=== PATIENT | male | born 1990 | race Caucasian/White ===

== ENCOUNTER 2016-11-05 15:22 | Emergency (ER) | payer BC ==
[2016-11-05 15:42] LABS: Urine Bilirubin Negative (NEGATIVE); Urine Blood 25 /ul (NEGATIVE); Urine Ketone Negative (NEGATIVE); Urine Nitrite Negative (NEGATIVE); Urine Protein Negative (NEGATIVE); Urine Urobilinogen Normal (NORMAL); Urine pH 7.5 pH (5.0-7.0)
--- NOTE | 2016-11-05 15:44 | ERNOTE ---
Back Pain ER HPI Time Seen by Provider: 11/05/16 15:32 Source: patient Exam Limitations: no limitations Immunizations: IMMUNIZATION HX History of Influenza Vaccine Yes Allergies/Adverse Reactions: Allergies No Known Allergies Allergy (Unverified 11/05/16 15:29) Home Medications: HOME MEDICATIONS Cyclobenzaprine HCl [Flexeril] 10 mg PO TID PRN #30 tab 11/05/16 [Last Taken Unknown] Ibuprofen [Motrin] 800 mg PO TID PRN #60 tab 11/05/16 [Last Taken Unknown] Sulfamethoxazole/Trimethoprim [Bactrim Ds] 1 tab PO BID #14 tab 11/05/16 [Last Taken Unknown] Narrative: Patient has had episodes of left flank pain for about six days. He had one episode six days ago lasting a few hours, had another one three days ago and was seen in the [facility] ER had labs and a CT to rule out renal colic, pain resolved. He had two more episodes yesterday and still has some discomfort now. He denies any injury, has had pain in his right hip for a few weeks that he saw a chiropractor for three days ago. Date (Duration): 10/30/16 Timing: Reports: intermittent Quality/Severity: Reports: moderate, sharpness Location of pain: Reports: lower back, no radiation Activities at Onset: Reports: none Recent Injury?: Reports: no Modifying Factors - (Worsens): Reports: movement to right, movement to left, cough/deep breaths Associated Symptoms: Reports: problems urinating. Denies: fever/chills, constipation/incontinence, nausea/vomiting Prior Treament: Denies: recently seen, similar symptoms before Review of Systems - Review of Systems Constitutional: Absent: recent illness, fever ENT: Present: nose congestion, nasal drainage Respiratory: Absent: shortness of breath, cough, other Gastrointestinal/Abdominal: Absent: nausea, vomiting, diarrhea, abdominal pain Genitourinary: Present: frequency, decreased urinary output, other - feels like incomplete emptying Musculoskeletal: Present: See HPI, back pain Neurological: Absent: headache, weakness, numbness - Patient's Past Medical History Patient History - Medical: No pertinent hx Patient History - Cardiac/Respiratory: No pertinent hx Patient History - Cancer: No Hx of Cancer Patient History - Surgical Procedures: Appendectomy, T & A Patient History - Other: None - Social History Living Situations: home Psych History: No pertinent hx Alcohol Use: none Drug Use: none - Immunizations History of Influenza Vaccine: Yes Physical Exam - Physical Exam General Appearance: Present: wd/wn, alert, no apparent distress Respiratory: Present: no respiratory distress, normal breath sounds, no accessory muscle use, chest nontender, lungs clear Cardiovascular/Chest: Present: regular rate, rhythm, no murmur Gastrointestinal/Abdominal: Present: normal bowel sounds, nontender - minimal tenderness on deep palpation in LLQ, nondistended, soft Back Exam: Present: normal inspection, normal range of motion, no vertebral tenderness, muscle spasm - left lower back. Absent: no CVA tenderness Extremity Exam: Present: normal inspection, normal range of motion, other - negative Neurological Exam: Present: alert, oriented, normal mood/affect, no motor/ sensory deficits Skin Exam: Present: normal color, warm/dry ED Progress - Results and Orders Patient's Lab Results:: I have reviewed the patient's lab results. - Vital Signs Patient's Vital Signs:: I have reviewed the patient's vital signs. Vital Signs: Vital Signs 11/05/16 15:25 Temperature 37.1 C Pulse Rate 93 Respiratory 12 Rate Blood Pressure 147/93 O2 Sat by Pulse 98 Oximetry - Progress/Reassessment Chief Complaint: Back Pain Progress Note-Subjective: 11/05/16 17:19 discussed results with patient and mother, per history musculoskeletal pain more likely than renal stone (unable to get results from [facility] at this time) Departure Clinical Impression: Back pain of thoracolumbar region UTI (urinary tract infection) Qualifiers: Urinary tract infection type: acute cystitis Hematuria presence: with hematuria Qualified Code(s): N30.01 - Acute cystitis with hematuria - Departure Disposition: Home self-care Condition: Good Instructions: Musculoskeletal Pain, Urinary Tract Infection, Adult, Easy-to- Read Additional Instructions: take the pain medication as needed call the [facility] for follow up Referrals: Jasmin Sewell DO [Associate] - Prescriptions: Cyclobenzaprine HCl [Flexeril] 10 mg PO TID PRN #30 tab PRN Reason: MUSCLE SPASMS Ibuprofen [Motrin] 800 mg PO TID PRN #60 tab PRN Reason: Pain Sulfamethoxazole/Trimethoprim [Bactrim Ds] 1 tab PO BID #14 tab
[2016-11-05 16:25] LABS: Urine Appearance Clear; Urine Color Yellow
[2016-11-05 16:26] LABS: Urine Amorphous Sediment Few - 1+ (NONE-FEW); Urine Bacteria 1+; Urine RBC 0-5 /hpf (0-5); Urine WBC 0-5 /hpf (0-5)
[2016-11-05 16:42] VITALS: BP 138/87
== END 2016-11-05 17:23 | disposition home or self-care (01) ==
LOC: ER 15:22
DX: M54.6 Pain in thoracic spine (principal); M54.5 Low back pain; N30.01 Acute cystitis with hematuria